=== PATIENT | male | born 1990 | race Caucasian/White ===

== ENCOUNTER 2017-03-20 01:59 | Emergency (ER) | payer BC, SELFPAY ==
[~2017-03-20] VITALS: Ht 180.3 cm; Wt 99.8 kg
[2017-03-20 02:03] VITALS: BP 145/85
== END 2017-03-20 03:29 | disposition left against medical advice (07) ==
LOC: M ED 03:17
DX: Z53.29 Procedure and treatment not carried out because of patient's decision for other reasons (principal)

== ENCOUNTER 2017-07-22 07:27 | Emergency (ER) | payer BC, OTHER ==
[~2017-07-22] VITALS: Ht 180.3 cm; Wt 84.5 kg
[2017-07-22] MEDS ORDERED: NEXI10GR PO (07:54)
[2017-07-22] MEDS ORDERED: SUCRALFATE SUSP 1GM/10ML UD PO ONE (08:30)
[2017-07-22] MEDS ORDERED: GI COCKTAIL 50ML BTL(HYOSCYAMINE/MAALOX/LIDOCAINE VISCOUS)(1:3:1) PO ONE (08:30)
[2017-07-22] MEDS ORDERED: ZOFR4TAB3 PO (09:01)
[2017-07-22] MEDS ORDERED: PROT20TA11 PO (09:01)
[2017-07-22 09:20] VITALS: BP 145/91
== END 2017-07-22 09:21 | disposition home or self-care (01) ==
LOC: M ED 07:27
DX: K29.00 Acute gastritis without bleeding (principal); K21.9 Gastro-esophageal reflux disease without esophagitis; R10.13 Epigastric pain; R11.2 Nausea with vomiting, unspecified; F17.200 Nicotine dependence, unspecified, uncomplicated; Z79.899 Other long term (current) drug therapy; Z88.8 Allergy status to other drugs, medicaments and biological substances

== ENCOUNTER → 2019-03-10 | Outpatient (REF) | payer OTHER, SELFPAY ==
[~2019-03-10] MED LIST: NEXI10GR PO; PROT20TA11 PO; ZOFR4TAB14 PO
[2019-03-10 14:06] LABS: APPEARANCE, URINE CLEAR (CLEAR); BACTERIA, URINE AUTO NEGATIVE (NEGATIVE); BILIRUBIN, URINE AUTO NEGATIVE (NEGATIVE); BLOOD, URINE BLOOD NEGATIVE (NEGATIVE); COLOR, URINE YELLOW (YELLOW); GLUCOSE, URINE (UA) AUTO NEGATIVE (NEGATIVE); KETONE, URINE AUTO NEGATIVE (NEGATIVE); LEUKOCYTE ESTERASE, URINE AUTO NEGATIVE (NEGATIVE); MUCUS, URINE SMALL (NEGATIVE); NITRITE, URINE AUTO NEGATIVE (NEGATIVE); PROTEIN, URINE AUTO NEGATIVE (NEGATIVE); RBC, URINE AUTO 0 /HPF (0-3); SQUAMOUS EPITHELIAL CELL UR AU 0 /HPF (0-6); UROBILINOGEN, URINE AUTO 0.2 mg/dL (0.0-2.0); WBC, URINE AUTO 0 /HPF (0-3)
[2019-03-10 14:28] LABS: BASO # 0.1 10^3/uL (0.0-0.2); EOS # 0.8 10^3/uL (0.0-0.50); EOS % 8.3 % (0.0-3.0); HEMATOCRIT 43.5 % (42.0-52.0); HEMOGLOBIN 14.5 g/dl (13.5-17.5); LYMPH % 42.8 % (24.0-44.0); MEAN CORPUSCULAR HEMOGLOBIN 30.9 pg (27.0-33.0); MEAN CORPUSCULAR HGB CONC 33.3 g/dl (32.0-36.5); MEAN CORPUSCULAR VOLUME 92.8 fl (80.0-96.0); MONO # 0.8 10^3/uL (0.0-0.8); MONO % 8.4 % (0.0-5.0); NEUTROPHILS # 3.6 10^3/uL (1.8-7.7); NEUTROPHILS % 39.3 % (36.0-66.0); PLATELET COUNT, AUTOMATED 286 10^3/uL (150-450); RED BLOOD COUNT 4.69 10^6/uL (4.30-6.10); WHITE BLOOD COUNT 9.3 10^3/uL (4.0-10.0)
[2019-03-10 15:48] LABS: ALBUMIN 3.9 GM/DL (3.2-5.2); ALT/SGPT 15 U/L (12-78); BILIRUBIN,TOTAL 0.4 MG/DL (0.2-1.0); BLOOD UREA NITROGEN 9 MG/DL (7-18); CALCIUM LEVEL 8.7 MG/DL (8.5-10.1); CARBON DIOXIDE LEVEL 28 MEQ/L (21-32); CHLORIDE LEVEL 107 MEQ/L (98-107); CHOLESTEROL LEVEL 122 MG/DL (<200); CREATININE FOR GFR 0.77 MG/DL (0.70-1.30); FREE T4 1.01 NG/DL (0.76-1.46); GLOMERULAR FILTRATION RATE > 60.0 (>60); GLUCOSE, FASTING 88 MG/DL (70-100); HDL CHOLESTEROL 40 MG/DL (>40); LDL CHOLESTEROL 68 MG/DL (<100); NON-HDL-C 82 MG/DL; SODIUM LEVEL 142 MEQ/L (136-145); THYROID STIMULATING HORMONE 0.507 uIU/ML (0.358-3.740); TOTAL 25(OH) VITAMIN D 15.4 NG/ML (30.0-100.0); TOTAL PROTEIN 7.4 GM/DL (6.4-8.2); TRIGLYCERIDES LEVEL 71 MG/DL (<150)
[2019-03-10 16:41] LABS: HEMOGLOBIN A1c 5.5 %
[2019-03-12 00:09] LABS: Lyme Disease IgG/IgM Antibodie <0.91 ISR (0.00-0.90); Lyme Disease IgM Ab Quantitati <0.80 index (0.00-0.79)
== END ==
LOC: M LAB REF 12:58
PROVIDERS: ATTEND Family Medicine
DX: Z13.228 Encounter for screening for other metabolic disorders (principal); Z00.01 Encounter for general adult medical examination with abnormal findings

== ENCOUNTER 2019-04-08 18:17 | Emergency (ER) | payer OTHER, SELFPAY ==
[~2019-04-08] VITALS: Ht 180.3 cm; Wt 84.1 kg
[2019-04-08] MEDS ORDERED: TRAM50TA2 PO (18:25)
[2019-04-08 19:14] VITALS: BP 159/86
[2019-04-08] MEDS ORDERED: PENI500T PO (19:14)
[2019-04-08] MEDS ORDERED: CLAR5TAB7 PO (19:14)
[2019-04-08] MEDS ORDERED: NAPR-837 PO (19:14)
[2019-04-08] MEDS ORDERED: PENICILLIN V POTASSIUM 500 MG TAB PO ONE (19:30)
== END 2019-04-08 20:00 | disposition home or self-care (01) ==
LOC: M ED 18:17
DX: R68.84 Jaw pain (principal); H65.91 Unspecified nonsuppurative otitis media, right ear; S02.5XXA Fracture of tooth (traumatic), initial encounter for closed fracture; X58.XXXA Exposure to other specified factors, initial encounter; Y92.89 Other specified places as the place of occurrence of the external cause; Z88.8 Allergy status to other drugs, medicaments and biological substances

== ENCOUNTER 2019-10-06 02:20 | Emergency (ER) | payer OTHER ==
[~2019-10-06] VITALS: Ht 180.3 cm; Wt 84.1 kg
[~2019-10-06 02:20] MED LIST changes: +CLAR5TAB7 PO; +NAPR-837 PO; +PENI500T PO; +TRAM50TA2 PO
[2019-10-06] MEDS ORDERED: NORCO 5/325MG TABLET (BULK FOR ED) PO ONE (03:45)
[2019-10-06] MEDS ORDERED: AUGMENTIN 875 MG TAB PO ONE (03:45)
[2019-10-06] MEDS ORDERED: AUGM875T28 PO (03:51)
[2019-10-06 03:54] VITALS: BP 147/96
== END 2019-10-06 03:57 | disposition home or self-care (01) ==
LOC: M ED 02:20
DX: K03.81 Cracked tooth (principal); K04.7 Periapical abscess without sinus; K12.2 Cellulitis and abscess of mouth; Z88.8 Allergy status to other drugs, medicaments and biological substances

== ENCOUNTER 2019-12-27 07:13 | Emergency (ER) | payer OTHER, SELFPAY ==
[~2019-12-27] VITALS: Ht 180.3 cm; Wt 87.2 kg
[~2019-12-27 07:13] MED LIST changes: +AUGM875T28 PO
[2019-12-27] MEDS ORDERED: LIDOCAINE 5% (LIDODERM) PATCH TD ONE (09:15)
[2019-12-27] MEDS ORDERED: CYCL10TA PO (09:39)
[2019-12-27] MEDS ORDERED: NAPR-837 PO (09:39)
[2019-12-27 10:05] VITALS: BP 146/74
[2019-12-27] MEDS ORDERED: **NOTE PATIENT COMMENT** MISC XX SCH (21:00)
== END 2019-12-27 10:06 | disposition home or self-care (01) ==
LOC: M ED 07:13
DX: S39.002A Unspecified injury of muscle, fascia and tendon of lower back, initial encounter (principal); Z88.8 Allergy status to other drugs, medicaments and biological substances; X50.0XXA Overexertion from strenuous movement or load, initial encounter; Y92.89 Other specified places as the place of occurrence of the external cause

== ENCOUNTER 2020-09-02 08:33 | Emergency (ER) | payer OTHER, SELFPAY ==
[~2020-09-02] VITALS: Ht 180.3 cm; Wt 91.5 kg
[~2020-09-02 08:33] MED LIST changes: +CYCL-707 PO
[2020-09-02 09:34] LABS: BASO # 0.1 10^3/uL (0.0-0.2); BASO % 0.9 % (0.0-1.0); EOS # 0.5 10^3/uL (0.0-0.5); EOS % 5.7 % (0.0-3.0); HEMATOCRIT 44.2 % (42.0-52.0); HEMOGLOBIN 14.7 g/dl (13.5-17.5); LYMPH # 3.4 10^3/uL (1.5-5.0); LYMPH % 36.8 % (24.0-44.0); MEAN CORPUSCULAR HEMOGLOBIN 31.1 pg (27.0-33.0); MEAN CORPUSCULAR HGB CONC 33.3 g/dl (32.0-36.5); MEAN CORPUSCULAR VOLUME 93.6 fl (80.0-96.0); MONO % 10.2 % (0.0-5.0); NEUTROPHILS # 4.3 10^3/uL (1.5-8.5); NEUTROPHILS % 46.1 % (36.0-66.0); PLATELET COUNT, AUTOMATED 285 10^3/uL (150-450); RED BLOOD COUNT 4.72 10^6/uL (4.30-6.10); WHITE BLOOD COUNT 9.3 10^3/uL (4.0-10.0)
[2020-09-02 10:02] LABS: ALBUMIN 4.1 GM/DL (3.2-5.2); ALT/SGPT 14 U/L (12-78); BILIRUBIN,DIRECT < 0.1 MG/DL (0.0-0.2); BILIRUBIN,TOTAL 0.4 MG/DL (0.2-1.0); LIPASE 148 U/L (73-393); TOTAL PROTEIN 7.8 GM/DL (6.4-8.2)
[2020-09-02 10:37] VITALS: BP 158/87
== END 2020-09-02 10:42 | disposition home or self-care (01) ==
LOC: M ED 08:33
DX: R10.33 Periumbilical pain (principal); R21 Rash and other nonspecific skin eruption; I10 Essential (primary) hypertension

== ENCOUNTER 2020-09-12 09:32 | Emergency (ER) | payer OTHER ==
[~2020-09-12] VITALS: Ht 180.3 cm; Wt 89.5 kg
[2020-09-12] MEDS ORDERED: NAPR-885 (09:42)
[2020-09-12] MEDS ORDERED: BENZOCAINE 10% 9GM TUBE (ANBESOL) MT ONE (10:15)
[2020-09-12] MEDS ORDERED: IBUPROFEN 600MG TAB PO ONE (10:15)
[2020-09-12] MEDS ORDERED: ONDANSETRON 4 MG ORAL DISINTEGRATING TAB PO ONE (10:15)
[2020-09-12] MEDS ORDERED: ACETAMINOPHEN 500 MG TAB PO ONE (10:15)
[2020-09-12] MEDS ORDERED: PENI500T PO (10:19)
[2020-09-12] MEDS ORDERED: ONDA4TAB6 PO (10:19)
[2020-09-12 11:08] VITALS: BP 143/76
== END 2020-09-12 11:52 | disposition home or self-care (01) ==
LOC: M ED 09:32
DX: K04.7 Periapical abscess without sinus (principal); Z88.8 Allergy status to other drugs, medicaments and biological substances
CPT/HCPCS: 99283; Q0162

== ENCOUNTER 2021-02-20 06:33 | Emergency (ER) | payer OTHER ==
[~2021-02-20] VITALS: Ht 180.3 cm; Wt 89.9 kg
[~2021-02-20 06:33] MED LIST changes: +NAPR-885; +ONDA4TAB6 PO
[2021-02-20] MEDS ORDERED: ACETAMINOPHEN 325 MG TAB PO ONE (07:25)
[2021-02-20] MEDS ORDERED: NS 1,000 ML IV ONE (07:25)
[2021-02-20 07:50] LABS: BASO % 0.2 % (0.0-1.0); EOS # 0.1 10^3/uL (0.0-0.5); EOS % 0.4 % (0.0-3.0); HEMATOCRIT 41.7 % (42.0-52.0); HEMOGLOBIN 13.8 g/dl (13.5-17.5); LYMPH # 1.5 10^3/uL (1.5-5.0); LYMPH % 9.1 % (24.0-44.0); MEAN CORPUSCULAR HEMOGLOBIN 31.2 pg (27.0-33.0); MEAN CORPUSCULAR HGB CONC 33.1 g/dl (32.0-36.5); MEAN CORPUSCULAR VOLUME 94.1 fl (80.0-96.0); MONO # 0.6 10^3/uL (0.0-0.8); MONO % 3.4 % (2.0-8.0); NEUTROPHILS # 13.9 10^3/uL (1.5-8.5); NEUTROPHILS % 86.4 % (36.0-66.0); PLATELET COUNT, AUTOMATED 380 10^3/uL (150-450); RED BLOOD COUNT 4.43 10^6/uL (4.30-6.10); WHITE BLOOD COUNT 16.1 10^3/uL (4.0-10.0)
[2021-02-20 08:08] LABS: ALBUMIN 3.7 GM/DL (3.2-5.2); ALT/SGPT 12 U/L (12-78); BILIRUBIN,DIRECT 0.3 MG/DL (0.0-0.2); BILIRUBIN,TOTAL 1.1 MG/DL (0.2-1.0); BLOOD UREA NITROGEN 11 MG/DL (7-18); CARBON DIOXIDE LEVEL 26 MEQ/L (21-32); CHLORIDE LEVEL 105 MEQ/L (98-107); CK-MB VALUE MASS < 1.0 NG/ML (<3.6); CPK CREATINE PHOSPHOKINASE 51 U/L (39-308); CREATININE FOR GFR 0.95 MG/DL (0.70-1.30); GLOMERULAR FILTRATION RATE > 60.0 (>60); GLUCOSE, FASTING 105 MG/DL (70-100); LIPASE 38 U/L (73-393); MB/CK RELATIVE INDEX 1.96 (< OR =4); SODIUM LEVEL 141 MEQ/L (136-145); TOTAL PROTEIN 7.9 GM/DL (6.4-8.2); TROPONIN I < 0.02 NG/ML (< 0.10)
[2021-02-20] MEDS ORDERED: ISOVUE-370 76% 100ML VIAL As Ordered ONE (08:37)
[2021-02-20 08:54] LABS: RSV AMPLIFICATION NEGATIVE (NEGATIVE)
--- NOTE | 2021-02-20 09:06 | REP ---
INDICATION: fever, n/v, RUQ/RLQ pain. COMPARISON: None TECHNIQUE: Axial contrast-enhanced images from the lung bases to the pubic symphysis using 100 cc Isovue 370 intravenous contrast material. . This CT examination was performed using the following dose reduction techniques: Automated exposure control, adjustment of mA and/or kv according to the patient's size, and the use of iterative reconstruction technique. FINDINGS: Liver, spleen, pancreas, gallbladder, bilateral adrenal glands and kidneys are normal. The enteric system including stomach, small, and large bowel appears normal. No evidence for obstruction or acute inflammatory process. Normal terminal ileum and appendix are identified in the right lower quadrant. Pelvis demonstrates normal bladder and age-appropriate prostate/seminal vesicles. No ascites. No free air. No intraperitoneal or retroperitoneal adenopathy. Abdominal aorta and vasculature appear normal. Musculoskeletal structures are intact and without acute osseous abnormality. IMPRESSION: No acute abdominopelvic pathology appreciated. <Electronically signed by Milad Mcbride > 02/20/21 [id number]
[2021-02-20 09:34] VITALS: BP 138/83
== END 2021-02-20 09:35 | disposition home or self-care (01) ==
LOC: M ED 06:33
DX: U07.1 COVID-19 (principal); R10.9 Unspecified abdominal pain; M79.10 Myalgia, unspecified site; R11.2 Nausea with vomiting, unspecified; Z88.8 Allergy status to other drugs, medicaments and biological substances
CPT/HCPCS: 74177; 80048; 80076; 82550; 82553; 83605; 83690; 85025; 85379; 87040; 87631; 96360; 99284; Q9967

== ENCOUNTER 2021-04-06 17:43 | Emergency (ER) | payer OTHER ==
[~2021-04-06] VITALS: Ht 180.3 cm; Wt 93.0 kg
[2021-04-06] MEDS ORDERED: DAYQUIL (18:07)
[2021-04-06] MEDS ORDERED: ACETAMINOPHEN 325 MG TAB PO ONE (23:10)
[2021-04-06] MEDS ORDERED: IBUPROFEN 800 MG TAB PO ONE (23:10)
[2021-04-06] MEDS ORDERED: AZITHROMYCIN 250MG TABLET PO ONE (23:10)
[2021-04-06] MEDS ORDERED: ACET32TAB PO (23:19)
[2021-04-06] MEDS ORDERED: IBUP-1022 PO (23:19)
[2021-04-06] MEDS ORDERED: AZIT-10 PO (23:19)
[2021-04-06 23:45] VITALS: BP 152/84
--- NOTE | 2021-04-07 00:24 | REPVR ---
PROCEDURE INFORMATION: Exam: XR Chest Exam date and time: 04/06/2021 11:18 PM Age: 30 years old Clinical indication: Other: Cough/chest pain; Additional info: Cough /chest pain TECHNIQUE: Imaging protocol: XR of the chest. Views: 2 views. COMPARISON: CR Chest, 2 view PA, Lat 04/14/2014 3:38 PM FINDINGS: Lungs: There is mild interstitial prominence. No consolidation Pleural spaces: Unremarkable. No pleural effusion. No pneumothorax. Heart/Mediastinum: Unremarkable. No cardiomegaly. Bones/joints: Unremarkable. IMPRESSION: 1. Slightly prominent interstitial markings could represent atypical pneumonia. 2. No focal consolidation Electronically signed by: Anthony Rios On 04/07/2021 00:23:44 AM
== END 2021-04-06 23:45 | disposition home or self-care (01) ==
LOC: M ED 17:43
DX: J06.9 Acute upper respiratory infection, unspecified (principal)

== ENCOUNTER 2021-05-01 18:08 | Emergency (ER) | payer OTHER ==
[~2021-05-01] VITALS: Ht 180.3 cm; Wt 89.1 kg
[~2021-05-01 18:08] MED LIST changes: +ACET32TAB PO; +AZIT-10 PO; +DAYQUIL; +IBUP-1022 PO
[2021-05-01 21:42] VITALS: BP 168/98
== END 2021-05-01 21:46 | disposition home or self-care (01) ==
LOC: M ED 18:08
DX: H92.01 Otalgia, right ear (principal)

== ENCOUNTER 2021-11-19 18:54 | Emergency (ER) | payer OTHER ==
[~2021-11-19] VITALS: Ht 180.3 cm; Wt 97.0 kg
[2021-11-19] MEDS ORDERED: ACET-841 PO (19:33)
[2021-11-19] MEDS ORDERED: CETI-24 PO (19:33)
[2021-11-19 23:44] VITALS: BP 161/86
[2021-11-20] MEDS ORDERED: AUGM875T28 PO (03:32)
[2021-11-20] MEDS ORDERED: AUGMENTIN 875 MG TAB PO ONE (03:35)
== END 2021-11-20 04:15 | disposition home or self-care (01) ==
LOC: M ED 18:54
DX: H66.011 Acute suppurative otitis media with spontaneous rupture of ear drum, right ear (principal); K08.89 Other specified disorders of teeth and supporting structures; Z88.8 Allergy status to other drugs, medicaments and biological substances

== ENCOUNTER → 2022-01-09 | Outpatient (CLI) | payer OTHER ==
[~2022-01-09] MED LIST changes: +ACET-841 PO; +AMOX500C PO; +CETI-24 PO
== END ==
LOC: M LABSMTC 11:21
PROVIDERS: ATTEND Otolaryngology
DX: Z01.812 Encounter for preprocedural laboratory examination (principal); Z20.822 Contact with and (suspected) exposure to COVID-19

== ENCOUNTER 2022-01-14 07:26 | Day surgery (SDC) | payer OTHER ==
[~2022-01-14] VITALS: Ht 180.3 cm; Wt 99.2 kg
[~2022-01-14 07:26] MED LIST changes: +LIDOCAINE 1% MDV 20ML VIAL SQ PRN; +LR 1,000 ML IV ONE
[2022-01-14] MEDS ORDERED: CIPRODEX OTIC SUSP 7.5ML As Ordered ONE ×3 (08:14→09:30)
[2022-01-14] MEDS ORDERED: dexameTHASONE 4 MG/ML 1ML VIAL (J1100 PER 1MG) As Ordered ONE (08:17)
[2022-01-14] MEDS ORDERED: LIDOCAINE 2% 100MG/5ML SDV (FOR ANES.) As Ordered ONE (08:17)
[2022-01-14] MEDS ORDERED: MIDAZOLAM INJ 2MG/2ML VIAL (J2250 PER 1MG) As Ordered ONE (08:17)
[2022-01-14] MEDS ORDERED: ONDANSETRON 4MG/2ML VIAL As Ordered ONE (08:17)
[2022-01-14] MEDS ORDERED: fentaNYL 100 MCG/2 ML INJECTION As Ordered ONE ×2 (08:17→08:39)
[2022-01-14] MEDS ORDERED: propofoL 200 MG/20 ML VIAL As Ordered ONE ×2 (08:17→08:39)
[2022-01-14] MEDS ORDERED: COCAINE 4% 4ML NASAL SOLUTION BTL As Ordered ONE (08:36)
[2022-01-14] MEDS ORDERED: ONDANSETRON 4MG/2ML VIAL IV PRN (09:25)
[2022-01-14] MEDS ORDERED: ACETAMINOPHEN 500 MG TAB PO PRN (09:25)
[2022-01-14] MEDS ORDERED: LR 1,000 ML IV SCH ×2 (09:25)
[2022-01-14] MEDS ORDERED: fentaNYL 100 MCG/2 ML INJECTION IV PRN (09:25)
[2022-01-14] MEDS ORDERED: oxyCODONE 5MG TAB PO PRN (09:25)
[2022-01-14 10:30] VITALS: BP 140/76
== END 2022-01-14 10:30 | disposition home or self-care (01) ==
LOC: M SDC 07:26
PROVIDERS: ATTEND Otolaryngology
DX: H69.81 Other specified disorders of Eustachian tube, right ear (principal); Z88.8 Allergy status to other drugs, medicaments and biological substances; Z79.899 Other long term (current) drug therapy
CPT/HCPCS: 69436; C9046; J1100; J2250; J2405; J3010

== ENCOUNTER 2022-12-26 21:17 | Emergency (ER) | payer OTHER, SELFPAY ==
[~2022-12-26] VITALS: Ht 180.3 cm; Wt 92.7 kg
[~2022-12-26 21:17] MED LIST changes: -LIDOCAINE 1% MDV 20ML VIAL SQ PRN; -LR 1,000 ML IV ONE
[2022-12-27 01:40] VITALS: BP 137/90
== END 2022-12-27 07:00 | disposition left against medical advice (07) ==
LOC: M ED 21:17
DX: Z53.21 Procedure and treatment not carried out due to patient leaving prior to being seen by health care provider (principal)

== ENCOUNTER 2023-09-01 12:13 | Day surgery (SDC) | payer OTHER ==
[~2023-09-01] VITALS: Ht 180.3 cm; Wt 87.2 kg
[2023-09-01] MEDS ORDERED: MIDAZOLAM INJ 2MG/2ML VIAL As Ordered ONE (12:48)
[2023-09-01] MEDS ORDERED: fentaNYL 100 MCG/2 ML INJECTION As Ordered ONE (12:48)
[2023-09-01] MEDS ORDERED: propofoL 200 MG/20 ML VIAL As Ordered ONE (12:49)
[2023-09-01] MEDS ORDERED: LR 1,000 ML IV SCH (12:50)
[2023-09-01] MEDS ORDERED: CIPRODEX OTIC SUSP 7.5ML As Ordered ONE (13:53)
[2023-09-01] MEDS ORDERED: oxyCODONE 5MG TAB PO PRN (14:25)
[2023-09-01] MEDS ORDERED: fentaNYL 100 MCG/2 ML INJECTION IV PRN (14:25)
[2023-09-01] MEDS ORDERED: ONDANSETRON 4MG 2ML VIAL IV PRN (14:25)
[2023-09-01 15:00] VITALS: BP 143/79; TEMP 98; O2SAT 95
== END 2023-09-01 15:10 | disposition home or self-care (01) ==
LOC: M SDC 12:13
PROVIDERS: ATTEND Otolaryngology
DX: Z45.82 Encounter for adjustment or removal of myringotomy device (stent) (tube) (principal); Z87.891 Personal history of nicotine dependence; R21 Rash and other nonspecific skin eruption; Z88.8 Allergy status to other drugs, medicaments and biological substances
CPT/HCPCS: 69424; J2250; J3010

== ENCOUNTER 2023-09-11 09:26 | Emergency (ER) | payer OTHER ==
[2023-09-11 09:27] VITALS: BP 154/78; TEMP 98.7; O2SAT 99
[2023-09-11] MEDS ORDERED: OXYM15SP2 (10:43)
[2023-09-11] MEDS ORDERED: SUDA240T2 PO (10:43)
[2023-09-11] MEDS ORDERED: FLON1SPR NARES (10:44)
== END 2023-09-11 10:54 | disposition home or self-care (01) ==
LOC: M ED 09:26
DX: J01.90 Acute sinusitis, unspecified (principal); H65.20 Chronic serous otitis media, unspecified ear; Z79.2 Long term (current) use of antibiotics; Z79.51 Long term (current) use of inhaled steroids; Z79.899 Other long term (current) drug therapy

== ENCOUNTER 2023-09-22 15:15 | Emergency (ER) | payer OTHER ==
[~2023-09-22 15:15] MED LIST changes: +FLON1SPR NARES; +OXYM15SP2; +SUDA240T2 PO
[2023-09-22 15:16] VITALS: BP 166/91; TEMP 98.6; O2SAT 98
== END 2023-09-23 00:11 | disposition left against medical advice (07) ==
LOC: M ED 15:15
DX: Z53.21 Procedure and treatment not carried out due to patient leaving prior to being seen by health care provider (principal)